=== PATIENT | female | born 1935 | race Asian ===

== ENCOUNTER 2022-11-06 08:46 | Observation (INO) | payer OTHER ==
[2022-11-06 09:04] VITALS: BMI 24.4
[2022-11-06 10:05] LABS: BASO % 0.5 % (0-2.0); EOS % 2.6 % (0-4.5); HEMATOCRIT 39.5 % (32.4-45.2); HEMOGLOBIN 12.6 GM/dL (10.7-15.3); LYMPH % 46.9 % (8-40); MCH 29.1 pg (25.7-33.7); MCHC 31.9 g/dl (32.0-36.0); MEAN CELL VOLUME 91.1 fl (80-96); MEAN PLT VOLUME 9.8 fl (7.5-11.1); MONO % 7.3 % (3.8-10.2); NEUT % 42.7 % (42.8-82.8); PLATELET COUNT 184 10^3/uL (134-434); RBC 4.34 M/mm3 (3.60-5.2); RDW 13.9 % (11.6-15.6)
[2022-11-06 10:13] LABS: INR 0.98 (0.83-1.09); PROTHROMBIN TIME (PATIENT) 11.4 SEC (9.7-13.0)
[2022-11-06 10:16] LABS: ACTIVATED PTT 30.8 SECONDS (25.2-36.5)
[2022-11-06 10:23] LABS: POTASSIUM 4.2 mmol/L (3.5-5.1)
[2022-11-06 10:24] LABS: CALCIUM 8.3 mg/dL (8.5-10.1)
[2022-11-06 10:25] LABS: ALBUMIN 3.5 g/dl (3.4-5.0)
[2022-11-06 10:26] LABS: BLOOD UREA NITROGEN 17.6 mg/dL (7-18)
[2022-11-06 10:26] LABS: URINE APPEARANCE CLEAR; URINE BILIRUBIN NEGATIVE (NEGATIVE); URINE COLOR YELLOW; URINE GLUCOSE (UA) 3+ (NEGATIVE); URINE KETONE NEGATIVE (NEGATIVE); URINE LEUK ESTERASE NEGATIVE (NEGATIVE); URINE NITRITE NEGATIVE (NEGATIVE); URINE PROTEIN NEGATIVE (NEGATIVE); URINE UROBILINOGEN 0.2 mg/dL (0.2-1.0)
[2022-11-06 10:28] LABS: CREATININE 0.8 mg/dL (0.55-1.3)
[2022-11-06] MEDS ORDERED: METOCLOPRAMIDE HCL INJECTION 10 MG/2 ML VIAL IVPB ONE (10:29)
[2022-11-06 10:30] LABS: TOT PROT 6.5 g/dl (6.4-8.2)
[2022-11-06 10:31] LABS: BILIRUBIN,TOTAL 0.6 mg/dL (0.2-1)
[2022-11-06] MEDS ORDERED: METOCLOPRAMIDE HCL INJECTION 10 MG/2 ML VIAL ONE (11:14)
[2022-11-06 12:26] LABS: MAGNESIUM 2.3 mg/dL (1.8-2.4)
[2022-11-06] MEDS ORDERED: ASPIRIN 81 MG CHEWABLE TABLETS PO SCH (14:30)
[2022-11-06] MEDS ORDERED: PATIENT'S OWN MEDICATION (NON-FORMULARY) (Vortioxetine Hydrobromide [Trintellix] 5 MG Tabl PO SCH (14:30)
[2022-11-06] MEDS ORDERED: PATIENT'S OWN MEDICATION (NON-FORMULARY) (Dapagliflozin Propanediol 5 MG Tablet) PO SCH (14:30)
[2022-11-06] MEDS: ASPIRIN COATED 81 MG TABLET.EC PO SCH (16:31)
[2022-11-06] MEDS: LOSARTAN POTASSIUM 50 MG TABLET PO SCH (16:31)
[2022-11-06] MEDS: OMEGA-3 ACID ETHYL ESTERS (FATTY-ACIDS) 1 GM CAPSULE (FP) PO SCH (16:33)
[2022-11-06] MEDS: INSULIN SLIDING SCALE (NOVOLOG) 1 VIAL SQ SCH ×2 (16:50→22:01)
[2022-11-06] MEDS: METOPROLOL TARTRATE 25 MG TABLET (FP) PO SCH (21:56)
[2022-11-06] MEDS ORDERED: DONEPEZIL HCL 5 MG TABLET (FP) PO SCH (22:00)
[2022-11-06] MEDS ORDERED: ROSUVASTATIN CA 5 MG TABLET PO SCH (22:00)
[2022-11-07] MEDS: INSULIN SLIDING SCALE (NOVOLOG) 1 VIAL SQ SCH ×2 (06:02→11:16)
[2022-11-07 06:31] VITALS: RESP 19
[2022-11-07] MEDS ORDERED: ROSUVASTATIN CA 10 MG TABLET PO SCH (07:41)
[2022-11-07 08:01] LABS: BASO % 0.7 % (0-2.0); EOS % 3.3 % (0-4.5); HEMOGLOBIN 13.3 GM/dL (10.7-15.3); LYMPH % 48.2 % (8-40); MCH 29.4 pg (25.7-33.7); MCHC 32.6 g/dl (32.0-36.0); MEAN CELL VOLUME 90.3 fl (80-96); MEAN PLT VOLUME 9.7 fl (7.5-11.1); MONO % 7.8 % (3.8-10.2); PLATELET COUNT 188 10^3/uL (134-434); RBC 4.54 M/mm3 (3.60-5.2); RDW 14.2 % (11.6-15.6); WHITE BLOOD COUNT 3.8 K/mm3 (4.0-10.0)
[2022-11-07 08:31] LABS: CALCIUM 8.7 mg/dL (8.5-10.1)
[2022-11-07 08:32] LABS: ALBUMIN 3.5 g/dl (3.4-5.0); BLOOD UREA NITROGEN 17.2 mg/dL (7-18); MAGNESIUM 2.3 mg/dL (1.8-2.4)
[2022-11-07 08:35] LABS: CREATININE 0.5 mg/dL (0.55-1.3); PHOSPHOROUS 3.5 mg/dL (2.5-4.9)
[2022-11-07 08:36] LABS: BILIRUBIN,TOTAL 0.6 mg/dL (0.2-1); TOT PROT 6.4 g/dl (6.4-8.2)
[2022-11-07 09:49] VITALS: BP 150/70; PULSE 69; TEMP 97.7
[2022-11-07] MEDS: OMEGA-3 ACID ETHYL ESTERS (FATTY-ACIDS) 1 GM CAPSULE (FP) PO SCH (09:51)
[2022-11-07] MEDS: ASPIRIN COATED 81 MG TABLET.EC PO SCH (09:51)
[2022-11-07] MEDS: METOPROLOL TARTRATE 25 MG TABLET (FP) PO SCH (09:51)
[2022-11-07] MEDS: LOSARTAN POTASSIUM 50 MG TABLET PO SCH (09:51)
[2022-11-07] MEDS ORDERED: ENOXAPARIN NA (PORCINE) 40 MG/0.4 ML DISP.SYRIN SQ SCH (10:00)
[2022-11-07] MEDS ORDERED: PANTOPRAZOLE 20 MG TABLET PO SCH (10:00)
== END 2022-11-07 14:08 | disposition home or self-care (01) ==
LOC: JER 08:46 → JERBED 11:10 → J4S 14:39
PROVIDERS: ADMIT Internal Medicine; ATTEND Internal Medicine
PROC: 3E023GC Introduction of Other Therapeutic Substance into Muscle, Percutaneous Approach (ICD-10-PCS; principal; 2022-11-06)
PROC: 3E033GC Introduction of Other Therapeutic Substance into Peripheral Vein, Percutaneous Approach (ICD-10-PCS; 2022-11-06)
DX: R55 Syncope and collapse (principal); M19.90 Unspecified osteoarthritis, unspecified site; I10 Essential (primary) hypertension; R26.2 Difficulty in walking, not elsewhere classified; E11.9 Type 2 diabetes mellitus without complications; Z99.89 Dependence on other enabling machines and devices; K21.9 Gastro-esophageal reflux disease without esophagitis; R42 Dizziness and giddiness
CPT/HCPCS: 36415; 70450-TC; 70551-TC; 71045-TC-FY; 72125-TC; 80053; 80061; 81003; 82550; 82962; 83036; 83735; 84100; 84484; 85025; 85610; 85730; 86850; 86900; 86901; 93005; 93010; 93306-TC; 96372; 96374; 97116-GP; 97161-GP; 99285-25; G0378